=== PATIENT | male | born 2000 | race Asian ===

== ENCOUNTER 2022-04-11 19:58 | Emergency (ER) | payer BC, OTHER ==
[~2022-04-11] VITALS: Ht 182.9 cm; Wt 54.4 kg
[2022-04-11 20:58] VITALS: BP 134/82
[2022-04-11] MEDS ORDERED: PERCOT PO (22:14)
[2022-04-11] MEDS ORDERED: ALPRAZolam 0.5 MG TAB PO ONE (22:45)
== END 2022-04-11 22:56 | disposition home or self-care (01) ==
LOC: ER 19:58
DX: S86.912A Strain of unspecified muscle(s) and tendon(s) at lower leg level, left leg, initial encounter (principal); S86.911A Strain of unspecified muscle(s) and tendon(s) at lower leg level, right leg, initial encounter; S16.1XXA Strain of muscle, fascia and tendon at neck level, initial encounter; R51.9 Headache, unspecified; V89.2XXA Person injured in unspecified motor-vehicle accident, traffic, initial encounter; Y93.89 Activity, other specified; Y92.89 Other specified places as the place of occurrence of the external cause; Y99.8 Other external cause status
CPT/HCPCS: 70450; 71250; 72125; 74176